=== PATIENT | male | born 1940 | race Caucasian/White ===

== ENCOUNTER → 2017-07-20 | Outpatient (CLI) | payer OTHER ==
[~2017-07-20] MED LIST: ALLOPURINOL 10100 M1 PO; ASTELIN SPRAY; ATORVASTATIN CA40 MG PO; BAYER CHEWABLE81 MG; BREO ELLIPTA 21 EACH IH; COQ-10100 MG PO; DOCUSATE SODIU100 MG PO; EFFIENT10 MG PO; FISH OIL 1,001000 M2 PO; IBUPROFEN200 M1 PO; KLOR-CON 1010 MEQ PO; LISINOPRIL-HCT1 EACH; MAGNESIUM OXID400 MG PO; NEXIUM20 MG; TOPROL XL25 MG PO; TYLENOL325 MG PO; ZANAFLEX4 MG PO; ZANTAC 150MG T150 MG PO
== END ==
LOC: NUC 06:47
DX: I25.10 Atherosclerotic heart disease of native coronary artery without angina pectoris (principal)

== ENCOUNTER → 2018-09-09 | Outpatient (CLI) | payer OTHER ==
--- NOTE | 2018-09-09 09:32 | 2DMMODE ---
[facility] [employer] [place] [address] 2 D/M-MODE ECHOCARDIOGRAM Name: CONNIE MARTINEZ MIKEL Room #: REG [facility]#: [id number] ������������� Admission: 09/09/18 ������������� Attend Phys: Jonathan Mendoza MD Discharge: ��� ������������� ��� Date of : 44 Date of Service: 09/09/18 0932 �� Report #: [id number] �������� ��������������������������������������������[id number] THIS REPORT FOR: //name// APPROVED REPORT Study performed: 09/09/2018 08:24:07 EXAM: Comprehensive 2D, Doppler, and color-flow Echocardiogram Patient Location: Out-Patient Status: routine BSA: 1.84 HR: 50 bpm BP: 142/70 mmHg Rhythm: NSR/Bradycardia/PVCs Other Information Study Quality: Adequate Technically limited study due to Awkward rib spaces. Indications Atrial Fibrillation Hx;CAD, Stent, HTN, HLD 2D Dimensions RVDd: 36.83 mm IVSd: 9.79 (7-11mm) LVOT Diam: 21.13 (18-24mm) LVDd: 51.19 mm PWd: 10.02 (7-11mm) Ascending Ao: 27.70 (22-36mm) LVDs: 33.87 (25-40mm) Aortic Root: 36.41 mm Volumes Left Atrial Volume (Systole) Single Plane 4CH: 51.57 mL Single Plane 2CH: 67.01 mL LA ESV Index: 35.00 mL/m2 Aortic Valve AoV Peak Johan.: 1.49 m/s AO Peak Gr.: 8.82 mmHg LVOT Max P.50 mmHg LVOT Max V: 0.79 m/s CELSA Vmax: 1.87 cm2 Mitral Valve [facility] [address] [address] 2 D/M-MODE ECHOCARDIOGRAM Name: CONNIE MARTINEZ Room #: REG [facility]#: [id number] ������������� Admission: 09/09/18 ������������� Attend Phys: Jonathan Mendoza MD Discharge: ��� ������������� ��� Date of : 44 Date of Service: 09/09/18 0932 �� Report #: [id number] �������� ��������������������������������������������[id number] E/A Ratio: 1.8 MV Decel. Time: 179.28 ms MV E Max Johan.: 1.09 m/s MV A Johan.: 0.62 m/s MV PHT: 51.99 ms IVRT: 92.27 ms Pulmonary Valve PV Peak Johan.: 0.95 m/s PV Peak Gr.: 3.59 mmHg Pulmonary Vein P Vein S: 0.50 m/s P Vein A: 0.22 m/s P Vein D: 0.54 m/s P Vein A Dur.: 78.4 msec P Vein S/D Ratio: 0.93 Tricuspid Valve TR Peak Johan.: 2.64 m/s RAP Estimate: 5.00 mmHg TR Peak Gr.: 27.87 mmHg PA Pressure: 33.00 mmHg Left Ventricle The left ventricle is normal size. There is normal LV segmental wall motion. There is normal left ventricular wall thickness. The left ventricular systolic function is normal. LVEF is 55-60%. Right Ventricle The right ventricle is normal size. The right ventricular systolic function is normal. Atria Left atrium is mildly dilated. The right atrium size is normal. Aortic Valve Aortic valve leaflets are mildly thickened, calcifed. Mild aortic regurgitation. There is no aortic valvular stenosis. Mitral Valve Mitral valve leaflets are mildly calcified. Mild mitral regurgitation. No evidence of mitral valve stenosis. Tricuspid Valve The tricuspid valve is normal in structure. Mild tricuspid regurgitation. Estimated PAP is 30- 35mmHg. [place] [address] 2 D/M-MODE ECHOCARDIOGRAM Name: CONNIE MARTINEZ MIKEL Room #: REG [facility]#: [id number] ������������� Admission: 09/09/18 ������������� Attend Phys: Jonathan Mendoza MD Discharge: ��� ������������� ��� Date of : 44 Date of Service: 09/09/18 0932 �� Report #: [id number] �������� ��������������������������������������������[id number] Pulmonic valve is not well visualized. There is no pulmonic valvular regurgitation. Great Vessels The aortic root is normal in size. The ascending aorta is normal in size. IVC is normal in size and collapses >50% with inspiration. Pericardium There is no pericardial effusion. <Conclusion> The left ventricle is normal size. There is normal left ventricular wall thickness. The left ventricular systolic function is normal. The right ventricle is normal size. Left atrium is mildly dilated. The right atrium size is normal. Aortic valve leaflets are mildly thickened, calcifed. Mild aortic regurgitation. Mild mitral regurgitation. Mild tricuspid regurgitation. Estimated PAP is 30- 35mmHg. ��������������������������������������������� <ELECTRONICALLY SIGNED> ���������������������������������������� By: Jonathan Mendoza MD ��������������������������������������������� 09/09/1832 1 1 Jonathan Mendoza MD /INF
== END ==
LOC: CV 08:02
DX: I08.3 Combined rheumatic disorders of mitral, aortic and tricuspid valves (principal); I25.10 Atherosclerotic heart disease of native coronary artery without angina pectoris; I10 Essential (primary) hypertension; E78.5 Hyperlipidemia, unspecified; Z95.818 Presence of other cardiac implants and grafts

== ENCOUNTER → 2018-09-23 | Outpatient (CLI) | payer OTHER ==
[~2018-09-23] VITALS: Ht 165.1 cm; Wt 80.3 kg
[~2018-09-23] MED LIST changes: +ELIQUIS5 MG PO; +MOBIC7.5 MG PO; +NORCO 7.5-3251 EACH PO
[2018-09-23 07:05] VITALS: BP 133/61
--- NOTE | 2018-09-23 08:59 | TEE ---
[facility] [address] [employer] [place] [address] TRANSESOPHAGEAL ECHOCARDIOGRAM Name: CONNIE MARTINEZ Room #: REG [facility]#: [id number] ������������� Admission: 09/23/18 ������������� Attend Phys: Edwin Ruano, Discharge: ��� ������������� ��� Date of : 44 Date of Service: 09/23/18 0858 �� Report #: [id number] �������� ��������������������������������������������[id number] THIS REPORT FOR: //name// APPROVED REPORT Study performed: 09/23/2018 07:55:26 EXAM: Comprehensive 2D, Doppler, and color-flow Echocardiogram Patient Location: Out-Patient Room #: 9 Status: routine BSA: 1.84 HR: 65 bpm BP: 142/70 mmHg Rhythm: Atrial Fibrillation Other Information Study Quality: Good Indications Atrial Fibrillation Echo Enhancing Agent Indication: Rule out Shunt Agent(s) / Amount(s) Used: Agitated Saline 7 cc Procedure After obtaining informed consent, patient underwent transesophageal echo in the [facility]. Type of Sedation : Conscious Sedation Sedation was achieved intravenously with: Versed (3 mg) Fentanyl (50 mcg) Transesophageal probe was inserted and advanced into esophagus without difficulty by Edwin Ruano MD. Echo enhancement indication: R/O Septal defect. Echo enhancement agent administered: Agitated Saline The KWAME was performed without complications. Throughout the procedure, the blood pressure, pulse oximetry, cardiac rhythm, and rate were monitored. The patient tolerated the procedure without adverse effects. Recovery from conscious sedation was uneventful and vital signs were stable. Left Ventricle [facility] [address] [place] [address] TRANSESOPHAGEAL ECHOCARDIOGRAM Name: CONNIE MARTINEZ Room #: REG [facility]#: [id number] ������������� Admission: 09/23/18 ������������� Attend Phys: Edwin Ruano, Discharge: ��� ������������� ��� Date of : 44 Date of Service: 09/23/18 0858 �� Report #: [id number] �������� ��������������������������������������������[id number] The left ventricle is normal size. There is normal LV segmental wall motion. There is normal left ventricular wall thickness. The left ventricular systolic function is normal. The left ventricular ejection fraction is within the normal range. LVEF is 55-60%. Right Ventricle The right ventricle is normal size. The right ventricular systolic function is normal. Atria Left atrium is dilated. No thrombus is visualized in the left atrium or appendage. No shunting by contrast bubble injection. Right atrium is at the upper limits of normal. Aortic Valve The aortic valve is normal in structure. Trace aortic regurgitation. There is no aortic valvular stenosis. Mitral Valve The mitral valve is normal in structure. Moderate mitral regurgitation. No evidence of mitral valve stenosis. Tricuspid Valve The tricuspid valve is normal in structure. There is no tricuspid valve regurgitation noted. Pulmonic Valve The pulmonary valve is normal in structure. There is no pulmonic valvular regurgitation. Great Vessels The aortic root is normal in size. Mild scattered atherosclerosis. IVC is normal in size and collapses >50% with inspiration. Pericardium There is no pericardial effusion. <Conclusion> The left ventricular systolic function is normal. There is normal LV segmental wall motion. LVEF is 55-60%. Left atrium is dilated. No thrombus is visualized in the left atrium or appendage. The aortic valve is normal in structure. Trace aortic regurgitation, no stenosis. [facility] [address] [place] [address] TRANSESOPHAGEAL ECHOCARDIOGRAM Name: CONNIE MARTINEZ Room #: REG [facility]#: [id number] ������������� Admission: 09/23/18 ������������� Attend Phys: dEwin Ruano, Discharge: ��� ������������� ��� Date of : 44 Date of Service: 09/23/18857 �� Report #: [id number] �������� ��������������������������������������������[id number] The mitral valve is normal in structure. Moderate mitral regurgitation. Mild aortic atherosclerosis There is no pericardial effusion. ��������������������������������������������� <ELECTRONICALLY SIGNED> ���������������������������������������� By: Edwin Ruano MD, FACC ��������������������������������������������� 09/23/18857 7 7 Edwin Ruano MD, FACC /INF
== END | disposition home or self-care (01) ==
LOC: CATH 06:40
DX: I08.0 Rheumatic disorders of both mitral and aortic valves (principal); I48.91 Unspecified atrial fibrillation; I10 Essential (primary) hypertension; E78.5 Hyperlipidemia, unspecified; K21.9 Gastro-esophageal reflux disease without esophagitis; Z82.49 Family history of ischemic heart disease and other diseases of the circulatory system; Z87.891 Personal history of nicotine dependence; Z79.01 Long term (current) use of anticoagulants; Z79.899 Other long term (current) drug therapy; Z90.49 Acquired absence of other specified parts of digestive tract; Z98.890 Other specified postprocedural states

== ENCOUNTER → 2018-10-05 | Outpatient (CLI) | payer OTHER ==
[~2018-10-05] MED LIST changes: -ELIQUIS5 MG PO
[2018-10-05 08:17] LABS: HEMATOCRIT 37.3 % (42.0-52.0); MCH 35.9 pg (26.0-34.0); MCHC 34.7 g/dL (28.0-37.0); MCV 103.3 fL (80.0-100.0); RBC 3.61 mil/uL (4.50-6.00); RDW 12.1 % (10.5-14.5); WBC 5.5 thou/uL (4.0-11.0)
[2018-10-05 08:34] LABS: CALCIUM 9.3 mg/dL (8.5-10.1); CREATININE 1.1 mg/dL (0.7-1.3); POTASSIUM 4.6 mmol/L (3.5-5.1); TOTAL PROTEIN 6.9 g/dL (6.4-8.2)
== END ==
LOC: CAT 07:44
PROVIDERS: Internal Medicine Cardiovascular Disease
DX: I25.10 Atherosclerotic heart disease of native coronary artery without angina pectoris (principal); I48.91 Unspecified atrial fibrillation

== ENCOUNTER 2018-10-11 06:32 | Observation (INO) | payer OTHER ==
[~2018-10-11] VITALS: Ht 165.1 cm; Wt 81.6 kg
--- NOTE | ~2018-10-11 | P ---
[facility] [place] [address] PROCEDURE REPORT Name: MARLENAHAYLEYCONNIE MIKEL Room #: REG [facility]#: [id number] Admission: 10/11/18 ������������������ Attend Phys: Edgar Fulton MD Discharge: ������������������ Date of : 44 Report #: [id number] THIS REPORT FOR: //name// CC: Edgar Renteria PROCEDURE: AFib ablation. PREOPERATIVE DIAGNOSIS: Paroxysmal atrial fibrillation. POSTOPERATIVE DIAGNOSIS: Paroxysmal atrial fibrillation. HISTORY OF PRESENT ILLNESS: The patient is a 77-year-old with history of paroxysmal atrial fibrillation, here for an ablation. PROCEDURES PERFORMED: 1. Atrial fibrillation ablation, CPT code 26170. 2. 3D mapping, CPT code 08800. 3. Intracardiac echo, CPT code 18084. ANESTHESIA: The patient underwent general anesthesia, with no anesthesia-related complications. DESCRIPTION OF PROCEDURE: The patient underwent informed consent. We discussed the details of the procedure including the risks, which include but not limited to bleeding, vascular damage, cardiac perforation, stroke or NE. The patient understood these risks and is willing to proceed. The patient was brought to the EP laboratory in a fasting and sedated state and prepped and draped in a sterile fashion. I injected lidocaine to the right groin region and obtained access to the right femoral vein x 3. I placed an 8, 9 and 7-Yoruba short sheath in the right femoral vein using the modified Seldinger technique. Next, under fluoroscopy, I placed a decapolar catheter easily in the coronary sinus and an ice catheter in the right atrium. Next, the patient was systemically heparinized and a transseptal was performed using an SL1 sheath and a Weir needle. Transseptal was straightforward. I exchanged for the SL1 sheath to the cryo sheath and then placed a Lasso catheter into the left atrium and created a detailed 3D voltage map. This showed that the patient had a large left common ostium, which had a superior and an inferior branch. The patient had a right superior and right inferior branch as well. Next, I exchanged to the cryoballoon and started by isolating the left common ostium. I placed the Achieve catheter into the inferior branch initially. I performed initially 140-second freeze and the vein isolated within 42 seconds. I came off early as attempts were -50 degrees. I performed a second freeze of 160 seconds [address] [address] PROCEDURE REPORT Name: CONNIE MARTINEZ Room #: REG [facility]#: [id number] Admission: 10/11/18 ������������������ Attend Phys: Edgar Fulton MD Discharge: ������������������ Date of : 44 Report #: [id number] I then turned my attention and placed the Achieve into the upper branches. At this point, it already looked like the upper branches were likely isolated as I paced and there was only far-field left atrial appendage signals. However, I wanted to ensure that we froze the upper aspect well along the common ostium. Therefore, we performed a 150-second freeze, followed by 180-second freeze. I then turned my attention to the right superior pulmonary vein. I performed a 110-second freeze, followed by a 90-second freeze. The patient actually went into atrial flutter while I was engaging with this vessel. The vein isolated within 37 seconds of the first freeze. During the first freeze, the atrial flutter terminated after isolation of the vein. I then turned my attention to the right inferior pulmonary vein. It was harder to see local electrograms in this vessel. I, therefore, performed a 4-minute, followed by a 3-minute freeze. There was a small electrograms that appeared to isolate during the second freeze. Next, I removed my cryo catheter from the sheath and placed a Lasso catheter in the left atrium. We created a detailed 3D voltage map of the left atrium and there was clear isolation of the left common and the two right-sided veins. It appeared that we had performed a wide circumferential ablation of both veins. As such, the procedure was concluded. Pre-ablation, the patient was in sinus rhythm with sinus cycle length of 1080 milliseconds, OH interval 150 milliseconds, QRS duration 85 milliseconds and QT interval 425 milliseconds. Post-ablation, the patient remained in sinus rhythm. Post-ablation, using intracardiac ultrasound, I verified there was no pericardial effusion. The patient received systemic protamine and a cxpbwl-jg-eqmer was performed at the right groin region. The patient awoke neurologically and hemodynamically intact. No complications and no significant bleeding. CONCLUSIONS: Successful atrial fibrillation ablation with isolation of the pulmonary vein. ��������������������������������������������� ���������������������������������������� By: ��������������������������������������������� 1055 1215 Edgar Fulton MD /nt
[2018-10-11] MEDS ORDERED: ELIQUIS5 MG PO (06:53)
[2018-10-11 07:01] VITALS: BP 142/80
[2018-10-11 07:20] LABS: ABSOLUTE NEUTROPHILS 4.5 thou/uL (1.4-8.2); BASOPHILS 0.6 % (0.0-2.0); EOSINOPHILS 2.2 % (0.0-3.0); HEMATOCRIT 40.6 % (42.0-52.0); LYMPHOCYTES 20.3 % (24.0-44.0); MCH 35.5 pg (26.0-34.0); MCHC 34.4 g/dL (28.0-37.0); MONOCYTES 8.2 % (1.0-8.0); PLATELET COUNT 219 thou/uL (150-400); POLYS 68.7 % (36.0-66.0); RBC 3.94 mil/uL (4.50-6.00); RDW 12.2 % (10.5-14.5); WBC 6.5 thou/uL (4.0-11.0)
[2018-10-11 07:26] LABS: CALCIUM 9.8 mg/dL (8.5-10.1); POTASSIUM 3.7 mmol/L (3.5-5.1)
[2018-10-11 07:33] LABS: ALBUMIN 4.2 g/dL (3.4-5.0); TOTAL BILIRUBIN 1.5 mg/dL (<0.1-1.0); TOTAL PROTEIN 7.7 g/dL (6.4-8.2)
[2018-10-11 07:39] LABS: APTT 26.9 Seconds (24.5-32.8); PROTIME 10.2 Seconds (9.3-11.4)
[2018-10-11 15:30] VITALS: BP 145/86
[2018-10-11 16:00] VITALS: BP 135/85
[2018-10-11 17:00] VITALS: BP 138/89
--- NOTE | 2018-10-11 18:58 | NUR ---
PATIENT ARRIVED FROM EP LAB AT 1530, ALERT AND ORIENTED X4, AND DENIES ANY CP OR DISCOMFORT. RT GRION SITE D/C/I, AND SENSATION IS INTACT. VSS AMD AFEBRILE. ADMISION COMPLETED AND POC INITIATED.
[2018-10-11 19:48] VITALS: BP 146/76
[2018-10-11 23:49] VITALS: BP 146/76
--- NOTE | 2018-10-12 03:33 | NUR ---
ASSESSMENT DOCUMENTED.PT BEEN RESTING IN NO ACUTE DISTRESS.A/OX4.VSS.S/P ABLATION.BEEN SR WITH OCCASSIONAL PVCS.RIGHT GROIN W/O HEAMTOMA OR ACTIVE BLEEDING.DRESSING CDI.PAIN MEDS GIVEN FOR GENERALIZED CHRONIC PAIN W/RELIEF.UP AD GARRETT TO BR.GAIT STEADY.DENIES ANY OTHER CONCERNS AT THIS TIME.POSSIBLE DISCHARGE THIS AM.WILL CONT TO MONITOR PER POC.
[2018-10-12 04:00] VITALS: BP 135/68
[2018-10-12 05:12] VITALS: BP 135/68
[2018-10-12 07:30] VITALS: BP 121/67
[2018-10-12 09:49] VITALS: BP 121/67
--- NOTE | 2018-10-12 11:24 | NUR ---
ASSUMED CARE AT SHIFT CHANGE ALERT AND ORIENTED X4, SR ON THE MONITOR AND VSS. DISCHARGE AND MEDICATION INSTRCUTIONS GIVEN TO PATIENT AND HE VERBALIZED UNDERTANDING.
== END 2018-10-12 12:00 | disposition home or self-care (01) ==
LOC: CATH 06:32 → 2N 15:30 → CATH 15:31 → ENTRNSPT 10-12 11:28 → EDTRNSPTSTS 10-12 11:31 → 2N 10-12 12:00
PROVIDERS: ADMIT Internal Medicine Cardiovascular Disease
DX: I48.0 Paroxysmal atrial fibrillation (principal); I11.9 Hypertensive heart disease without heart failure; Z90.49 Acquired absence of other specified parts of digestive tract; Z98.890 Other specified postprocedural states; Z79.899 Other long term (current) drug therapy; Z88.0 Allergy status to penicillin; Z88.8 Allergy status to other drugs, medicaments and biological substances
CPT/HCPCS: 10081; 62110; 62900; 65020; 65040; 70005

== ENCOUNTER → 2019-02-01 | Outpatient (CLI) | payer OTHER ==
[~2019-02-01] MED LIST changes: +ELIQUIS5 MG PO
[2019-02-01 11:16] VITALS: BP 141/59
--- NOTE | 2019-02-21 14:01 | P ---
[address] [place] [address] PROCEDURE REPORT Name: CONNIE MARTINEZ MIKEL [id number] Admission: 02/01/19 Attend Phys: Edgar Fulton MD Discharge: Date of : 44 Report #: [id number] THIS REPORT FOR: //name// CC: Edgar Renteria PROCEDURES PERFORMED: Implantable loop recorder insertion. DESCRIPTION OF PROCEDURE: The patient underwent informed consent. She was prepped in a standard fashion. I injected lidocaine at the incision site. Incision was made. The device was injected under the skin, a single suture was delivered to the incision site and surgical glue was placed at outer skin layer. There were no procedure related complications. The implanted device was a [employer] Confirm, model #3500, serial #[id number]. CONCLUSIONS: Successful implantation of implantable loop recorder. <ELECTRONICALLY SIGNED> By: Edgar Fulton MD 02/21/19 1401 1221 1643 Edgar Fulton MD /nt
== END | disposition home or self-care (01) ==
LOC: CATH 10:38
DX: I48.91 Unspecified atrial fibrillation (principal); Z98.890 Other specified postprocedural states; I25.10 Atherosclerotic heart disease of native coronary artery without angina pectoris; Z79.01 Long term (current) use of anticoagulants; Z79.899 Other long term (current) drug therapy; Z79.82 Long term (current) use of aspirin; R00.1 Bradycardia, unspecified

== ENCOUNTER → 2019-05-03 | Outpatient (CLI) | payer OTHER ==
[~2019-05-03] MED LIST changes: +ATORVASTATIN CA80 MG PO; -BAYER CHEWABLE81 MG; +BAYER CHEWABLE81 MG PO; -LISINOPRIL-HCT1 EACH; +LISINOPRIL-HCT1 EACH PO; +MAPAP500 MG PO; +MULTIVITAMINS PO; +OMEPRAZOLE40 MG PO
== END ==
LOC: SJCVC 10:27
PROVIDERS: ATTEND Internal Medicine Cardiovascular Disease
DX: Z45.09 Encounter for adjustment and management of other cardiac device (principal); I48.0 Paroxysmal atrial fibrillation; I49.5 Sick sinus syndrome; E78.5 Hyperlipidemia, unspecified; I10 Essential (primary) hypertension; Z90.49 Acquired absence of other specified parts of digestive tract; Z79.899 Other long term (current) drug therapy; Z87.891 Personal history of nicotine dependence

== ENCOUNTER → 2019-05-12 | Outpatient (CLI) | payer OTHER ==
[~2019-05-12] VITALS: Ht 170.2 cm; Wt 77.1 kg
--- NOTE | 2019-05-12 11:21 | P ---
[facility] [place] [address] PROCEDURE REPORT Name: CONNIE MARTINEZ Room #: REG [facility]#: [id number] Admission: 05/12/19 Attend Phys: Vern Bird MD Discharge: Date of : 42 Report #: [id number] THIS REPORT FOR: cc: Jn Renteria MD, Steven A. MD Thesing, John A. MD ~ THIS REPORT FOR: //name// CC: Vern Renteria MD DATE OF SERVICE: 05/12/2019 BRIEF HISTORY: The patient is a 78-year-old male for average risk screening colonoscopy. His last colonoscopy was 12 years ago. PREOPERATIVE DIAGNOSIS: Average risk screening colonoscopy. POSTOPERATIVE DIAGNOSES: 1. Multiple colon polyps. 2. Small internal hemorrhoids. MEDICATIONS: Deep sedation with propofol per Anesthesia. SPECIMENS: 1. Polyp from mid ascending colon. 2. Polyp at 50 cm. 3. Polyp at 30 cm. 4. Rectal polyp. ESTIMATED BLOOD LOSS: 3 mL. PROCEDURE: Colonoscopy to cecum and terminal ileum with snare polypectomy and biopsy. FINDINGS: Prior to propofol sedation, procedure of colonoscopy discussed with the patient as well as potential risks and its complications. He indicates he understands and desires to proceed. DESCRIPTION OF PROCEDURE: With the patient in left lateral decubitus position, digital examination was completed, which revealed no abnormalities. Subsequently, the Olympus video colonoscope was introduced in the rectum, advanced under direct vision to the cecum. Done with minimal difficulty. Cecum was identified by the ileocecal valve and the appendiceal orifice. I was able to visualize the distal segment of terminal ileum, which was inspected and noted [facility] [address] [place] [address] PROCEDURE REPORT Name: CONNIE MARTINEZ MIKEL Room #: REG [facility]#: [id number] Admission: 05/12/19 Attend Phys: Vern Bird MD Discharge: Date of : 44 Report #: [id number] to be unremarkable. At that point, the scope was slowly withdrawn and careful circumferential views were obtained. As we withdrew the scope, there were noted to be some limitations of the prep, more so in the proximal colon. We extensively irrigated and suctioned and overall obtained a good prep. The mucosa was within normal limits, normal vascular pattern, normal light reflex. As we withdrew the scope, he was found to have a diminutive polyp in the mid ascending colon, which was removed with a cold polypectomy snare. The scope was further withdrawn and no additional abnormalities were noted until the descending colon was reached and at 50 cm, another diminutive polyp was seen and was actually somewhat smaller and removed with cold biopsy forceps. At 30 cm in the sigmoid, a flat 4-5 mm polyp was seen and removed by cold snare polypectomy. In the rectum, another diminutive polyp was seen, which had an adenomatous appearance and was removed by cold snare polypectomy. Upon retroflexion, small hemorrhoids were seen. Scope was withdrawn. The patient tolerated the procedure well. CONDITION OF THE PATIENT UPON DISCHARGE: Following procedure, the patient drowsy, aroused, conversant and will be discharged home when fully ambulatory. INSTRUCTIONS TO THE PATIENT AND FAMILY AT THE TIME OF DISCHARGE: A total of 4 polyps identified today. We will follow up on the pathology. If 3 or more polyps are adenomas, he should return in 3 years; if only 1 or 2 adenomas, he should return in 5 years; if none of the polyps are adenomas, he may not benefit from routine surveillance colonoscopy. He will return to the care of Dr. Jn Renteria and return to see me as needed. Last colonoscopy was 12 years ago. Withdrawal time from the cecum including cleanup was 18 minutes 19 seconds. <ELECTRONICALLY SIGNED> By: Vern Bird MD 05/12/19 1121 0941 1052 Vern Bird MD /nt
--- NOTE | 2019-05-13 16:09 | PATH ---
[facility] [address] [address] PATHOLOGY RPT PROCEDURE Name: SAM DAVIS MIKEL Room #: REG [facility]#: [id number] Admission: 05/12/19 Date of : 44 Discharge: Report #: [id number] Path Case #: [id number] [facility] Accession Number: [id number] . 01 Material submitted: . PART A: colon - POLYP AT MID ASCENDING COLON. Modifiers: mid, ascending PART B: colon - POLYP AT 50CM PART C: colon - POLYP AT 30CM PART D: rectum - POLYP AT RECTUM . 01 Clinical history: . Screening, colon polyps, hemorrhoids. . 02 Diagnosis: A. "Polyp at mid ascending colon", biopsy: - Tubular adenoma; no high-grade dysplasia. . B. "Polyp at 50 cm", biopsy: - Tubular adenoma; no high-grade dysplasia. . C. "Polyp at 30 cm", biopsy: - Tubular adenoma; no high-grade dysplasia. . D. "Polyp at rectum", biopsy: - Tubular adenoma; no high-grade dysplasia. (CLW:eleni; 05/13/2019) QMS 05/13/2019 1024 Local . 02 Electronically signed: . Odalis Souza MD, Pathologist NPI- [id number] . 01 Gross description: . A. Received in formalin labeled "Sam Davis, polyp at mid ascending colon" is a 0.8 x 0.6 x 0.1 cm fragment of jarvis-brown mucosa. The margin is inked and the specimen is bisected. The specimen is submitted entirely in A1. . B. Received in formalin labeled "Sam Davis, polyp at 50 cm" is a 0.5 x 0.5 x 0.1 cm aggregate of jarvis-brown soft tissue fragments. The specimen is submitted entirely in B1. . C. Received in formalin labeled "Sam Davis, polyp at 30 cm" is a 0.7 x 0.4 x 0.1 cm fragment of jarvis-brown mucosa. The margin is inked and the specimen is submitted entirely in C1. . D. Received in formalin labeled "Sam Davis, polyp at rectum" is a 1.0 [place] [address] PATHOLOGY RPT PROCEDURE Name: SAM DAVIS MIKEL Room #: REG [facility] Mariah#: [id number] Admission: 05/12/19 Date of : 44 Discharge: Report #: [id number] Path Case #: [id number] x 0.4 x 0.1 cm aggregate of jarvis-brown soft tissue fragments. The specimen is submitted entirely in D1. ([facility]; 05/12/2019) [facility] 05/12/2019 1638 Local . 02 Pathologist provided ICD-10: D12.2, D12.6, D12.8 . 02 CPT . 911789, 326741, 069989, 104441 Specimen Comment: A courtesy copy of this report has been sent to [phone], [phone] Specimen Comment: [id number] Specimen Comment: Report sent to / DR RODRIGUEZ Performed at: [address], [place] [id number] MD Hector Cai MD Phone: [phone] Performed at: [address] [id number] MD Manisha Garnica MD Phone: [phone]
== END | disposition home or self-care (01) ==
LOC: GI 04-22 10:29
DX: Z12.11 Encounter for screening for malignant neoplasm of colon (principal); D12.2 Benign neoplasm of ascending colon; D12.8 Benign neoplasm of rectum; D12.5 Benign neoplasm of sigmoid colon; K64.8 Other hemorrhoids; K21.9 Gastro-esophageal reflux disease without esophagitis; I10 Essential (primary) hypertension; I25.10 Atherosclerotic heart disease of native coronary artery without angina pectoris; E78.00 Pure hypercholesterolemia, unspecified; M19.90 Unspecified osteoarthritis, unspecified site; I48.91 Unspecified atrial fibrillation; Z98.890 Other specified postprocedural states; Z79.899 Other long term (current) drug therapy; Z90.49 Acquired absence of other specified parts of digestive tract; Z98.41 Cataract extraction status, right eye; Z98.42 Cataract extraction status, left eye; Z88.0 Allergy status to penicillin; Z88.8 Allergy status to other drugs, medicaments and biological substances; Z79.01 Long term (current) use of anticoagulants
CPT/HCPCS: 62110; 62900

== ENCOUNTER → 2019-10-11 | Outpatient (CLI) | payer OTHER | LOC: SJCVCIMAG 10:27 | PROVIDERS: ATTEND Internal Medicine Cardiovascular Disease | DX: I48.91 Unspecified atrial fibrillation (principal); R00.0 Tachycardia, unspecified; I49.3 Ventricular premature depolarization; I25.10 Atherosclerotic heart disease of native coronary artery without angina pectoris; I10 Essential (primary) hypertension; E78.00 Pure hypercholesterolemia, unspecified; Z79.899 Other long term (current) drug therapy; Z87.891 Personal history of nicotine dependence ==

== ENCOUNTER → 2019-11-08 | Outpatient (CLI) | payer OTHER | LOC: SJCVC 13:22 | PROVIDERS: ATTEND Internal Medicine Cardiovascular Disease | DX: R94.31 Abnormal electrocardiogram [ECG] [EKG] (principal); I48.0 Paroxysmal atrial fibrillation; I49.5 Sick sinus syndrome; I49.3 Ventricular premature depolarization; I25.10 Atherosclerotic heart disease of native coronary artery without angina pectoris; E78.5 Hyperlipidemia, unspecified; K21.9 Gastro-esophageal reflux disease without esophagitis; Z79.82 Long term (current) use of aspirin; Z79.899 Other long term (current) drug therapy; Z82.49 Family history of ischemic heart disease and other diseases of the circulatory system; Z87.891 Personal history of nicotine dependence ==

== ENCOUNTER → 2020-10-11 | Outpatient (CLI) | payer OTHER | LOC: SJCVCIMAG 08:07 | PROVIDERS: ATTEND Internal Medicine Cardiovascular Disease | DX: I08.3 Combined rheumatic disorders of mitral, aortic and tricuspid valves (principal); I49.9 Cardiac arrhythmia, unspecified; I48.0 Paroxysmal atrial fibrillation; I25.10 Atherosclerotic heart disease of native coronary artery without angina pectoris; I10 Essential (primary) hypertension; E78.00 Pure hypercholesterolemia, unspecified; K21.9 Gastro-esophageal reflux disease without esophagitis; E78.5 Hyperlipidemia, unspecified; Z88.0 Allergy status to penicillin; Z95.5 Presence of coronary angioplasty implant and graft; Z90.49 Acquired absence of other specified parts of digestive tract; Z79.82 Long term (current) use of aspirin; Z79.899 Other long term (current) drug therapy; Z87.891 Personal history of nicotine dependence; Z82.49 Family history of ischemic heart disease and other diseases of the circulatory system ==

== ENCOUNTER → 2020-11-07 | Outpatient (CLI) | payer OTHER | LOC: SJCVC 13:50 | PROVIDERS: ATTEND Internal Medicine Cardiovascular Disease | DX: R94.31 Abnormal electrocardiogram [ECG] [EKG] (principal); I49.1 Atrial premature depolarization; I48.0 Paroxysmal atrial fibrillation; I49.5 Sick sinus syndrome; I25.10 Atherosclerotic heart disease of native coronary artery without angina pectoris; I10 Essential (primary) hypertension; E78.5 Hyperlipidemia, unspecified; Z88.0 Allergy status to penicillin; K21.9 Gastro-esophageal reflux disease without esophagitis; Z90.49 Acquired absence of other specified parts of digestive tract; Z79.82 Long term (current) use of aspirin; Z79.899 Other long term (current) drug therapy; Z87.891 Personal history of nicotine dependence; Z82.49 Family history of ischemic heart disease and other diseases of the circulatory system ==

== ENCOUNTER → 2021-01-21 | Outpatient (CLI) | payer OTHER | LOC: SJCVC 10:50 | PROVIDERS: ATTEND Internal Medicine Cardiovascular Disease | DX: R94.31 Abnormal electrocardiogram [ECG] [EKG] (principal); I25.10 Atherosclerotic heart disease of native coronary artery without angina pectoris; I10 Essential (primary) hypertension; I48.0 Paroxysmal atrial fibrillation; E78.00 Pure hypercholesterolemia, unspecified; K21.9 Gastro-esophageal reflux disease without esophagitis; E78.5 Hyperlipidemia, unspecified; Z88.0 Allergy status to penicillin; Z79.82 Long term (current) use of aspirin; Z79.899 Other long term (current) drug therapy; Z87.891 Personal history of nicotine dependence; Z72.89 Other problems related to lifestyle ==